=== PATIENT | male | born 1990 | race African-American/Black ===

== ENCOUNTER 2025-01-07 14:29 | Inpatient (IN) | payer MEDICARE, MEDICAID ==
[~2025-01-07] VITALS: Ht 182.9 cm; Wt 54.5 kg
--- NOTE | 2025-01-07 14:56 | ED.PDOC ---
History of present illness HPI Comments 34-year-old male brought by paramedics from [facility] because of generalized weakness nausea frequent urination for the past few days. He was at [facility] recently for four days with a diagnosis of hyperglycemia. Patient was sent home with insulin. Patient has not taken his medications since he was discharged few days ago. He does not answer questions appropriately. Blood sugar was very high on arrival. Blood pressure within normal limits. His heart rate was in the 120s when paramedics arrived at the facility. His heart rate was high 90s on arrival to the ER. Denies shortness a breath. Denies any other symptoms. Time Seen by MD: 14:54 Primary Care Provider: DENIES History of present illness: Nurses Notes, Python Consultant Notes, Medications, Allergies Allergies: Coded Allergies: NO KNOWN ALLERGIES (Unverified , 03/20/12) Information Source: Patient, Emergency Med Personnel Mode of Arrival: EMS Timing: Hours Duration: Since onset Prehospital treatment: 12 Lead EKG, Accucheck Blachly: None Symptoms: Confusion History of: Diabetes Associated signs and symptoms: Nausea, Vomiting Past Medical History PAST MEDICAL HISTORY: DM, Denies Surgical History: Denies all surgeries Family History Family History: Unknown Social History Smoker: Cigarettes Alcohol: Denies ETOH Use Drugs: Denies Drug Use Lives In: Assisted Care Constitutional: reports: weakness; denies: chills, diaphoresis, fatigue, fever, malaise, sweats, others EENTM: denies: blurred vision, double vision, ear bleeding, ear discharge, ear drainage, ear pain, ear ringing, eye pain, eye redness, hearing loss, mouth pain, mouth swelling, nasal discharge, nose bleeding, nose congestion, nose p ain, photophobia, tearing, throat pain, throat swelling, voice changes, others Respiratory: denies: cough, hemoptysis, orthopnea, SOB at rest, shortness of breath, SOB with excertion, stridor, wheezing, others Cardiovascular: denies: chest pain, dizzy spells, diaphoresis, Dyspnea on exertion, edema, irregular heart beat, left arm pain, lightheadedness, palpitations, PND, syncope, others Gastrointestinal: reports: nausea, vomiting; denies: abdomen distended, abdominal pain, blood streaked bowels, constipated, diarrhea, dysphagia, difficulty swallowing, hematemesis, melena, poor appetite, poor fluid intake, rectal bleeding, rectal pain, others Genitourinary: denies: burning, dysuria, flank pain, frequency, hematuria, incontinence, penile discharge, penile sore, pain, testicle pain, testicle swelling, urgency, others Neurological: denies: dizziness, fainting, headache, left sided numbness, left sided weakness, numbness, paresthesia, pre-existing deficit, right sided numbness, right sided weakness, seizure, speech problems, tingling, tremors, weakness, others Musculoskeletal: denies: back pain, gout, joint pain, joint swelling, muscle pain, muscle stiffness, neck pain, others Integumetry: denies: bruises, change in color, change in hair/nails, dryness, laceration, lesions, lumps, rash, wounds, others Allergic/Immunocompromised: denies: Difficulty Healing, Frequent Infections, Hives, Itching, others Hematologic/Lymphatic: denies: anemia, blood clots, easy bleeding, easy bruising, swollen glands, others Endocrine: denies: excessive hunger, excessive sweating, excessive thirst, excessive urination, flushing, intolerance to cold, intolerance to heat, unexplained weight gain, unexplained weight loss, others Psychiatric: denies: anxiety, bipolar disorder, depression, hopeless, panic disorder, schizophrenia, sleepless, suicidal, others All Other Systems: Reviewed and Negative Physical Exam General Appearance: Moderate Distress, Thin HEENT: Normal ENT Inspection, Pharynx Normal, TMs Normal Neck: Full Range of Motion, Non-Tender, Normal, Normal Inspection Respiratory: Chest Non-Tender, Lungs Clear, No Accessory Muscle Use, No Res piratory Distress, Normal Breath Sounds Cardiovascular: No Edema, No JVD, No Murmur, No Gallop, Normal Peripheral Pulses, Regular Rate/Rhythm Breast Exam: Deferred Gastrointestinal: No Organomegaly, Non Tender, No Pulsatile Mass, Normal Bowel Sounds, Soft Genitalia: Deferred Pelvic: Deferred Rectal: Deferred Extremities: No calf tenderness, Normal capillary refill Musculoskeletal : Apperance: Normal Neurologic: Alert Cerebellar Function: NOT DONE Reflexes: NOT DONE Skin: Normal Color Peripheral Pulses: 3+ Radial (R), 3+ Radial (L) Lymphatic: No Adenopathy Was a procedure done? Was a procedure done?: No Differential Diagnosis (DM) Differential Diagnosis: Dehydration, DKA, Hyperglycemia X-Ray, Labs, Meds, VS Vital Signs Date Time Temp Pulse Resp B/P (MAP) Pulse Ox O2 Delivery O2 Flow Rate FiO2 01/07/25 14:59 98.3 87 16 123/89 (100) 100 Lab Test 01/07/25 15:12 01/07/25 15:09 01/07/25 14:57 01/07/25 14:52 Range/Units Blood Gas Specimen Type Arterial Blood Gas Sample Site Right radial Blood Gas Patient Temperature 37.0 Arterial Blood Date Drawn [id number] Arterial Blood pH 7.289 L 7.350-7.450 Arterial Blood Partial Pressure CO2 39.7 35.0-48.0 mmHg Arterial Blood Partial Pressure O2 90.9 83.0-108.0 mmHg Arterial Blood HCO3 18.6 L 21.0-28.0 mmol/L Arterial Blood Oxygen Saturation 96.1 94.0-98.0 % Arterial Blood Base Excess -7.4 L -2.0-3.0 mmol/L Arterial Blood Oxyhemoglobin 94.6 94.0-98.0 % Arterial Blood Carboxyhemoglobin 1.2 0.5-1.5 % Arterial Blood Methemoglobin 0.4 0.0-1.5 % Fly Test Yes Blood Gas Total Hemoglobin 13.80 13.5-17.5 g/dL Blood Gas Modality Room air FiO2 % 21.0 White Blood Count 8.0 4.4-10.8 10^3/uL Red Blood Count 4.69 4.5-5.90 10^6/uL Hemoglobin 14.1 13.5-17.5 g/dL Hematocrit 44.5 41.0-53.0 % Mean Corpuscular Volume 94.9 80.0-100.0 fL Mean Corpuscular Hemoglobin 30.0 28.0-32.0 pg Mean Corpuscular Hemoglobin Concent 31.7 L 32.0-36.0 g/dL Red Cell Distribution Width 16.6 H 11.8-14.3 % Platelet Count 422 140-450 10^3/uL Mean Platelet Volume 8.9 6.9-10.8 fL Neutrophils (%) (Auto) 80.0 37.0-80.0 % Lymphocytes (%) (Auto) 13.5 10.0-50.0 % Monocytes (%) (Auto) 5.4 0.0-12.0 % Eosinophils (%) (Auto) 0.2 0.0-7.0 % Basophils (%) (Auto) 0.9 0.0-2.0 % Neutrophils # (Auto) 6.4 1.6-8.6 10 ^3/uL Lymphocytes # (Auto) 1.1 0.4-5.4 10 ^3/uL Monocytes # (Auto) 0.4 0-1.3 10 ^3/uL Eosinophils # (Auto) 0 0-0.8 10 ^3/uL Basophils # (Auto) 0.1 0-0.2 10 ^3/uL Nucleated Red Blood Cells 0.0 % Sodium Level 135 L 136-145 mmol/L Potassium Level 6.6 *H 3.5-5.1 mmol/L Chloride Level 94 L 98-107 mmol/L Carbon Dioxide Level 19 L 20-31 mmol/L Anion Gap 22 H 5-15 Blood Urea Nitrogen 32 H 9-23 mg/dL Creatinine 1.86 H 0.700-1.30 mg/dL Glomerular Filtration Rate Calc 48 >90 mL/min BUN/Creatinine Ratio 17.2 10.0-20.0 Serum Glucose 915 *H 74-106 mg/dL Calcium Level 12.2 H 8.7-10.4 mg/dL Beta-Hydroxybutyric Acid > 4.500 H < 0.4 mmol/L POC Glucose > 600 *H 70-106 mg/dl Urine Color Colorless Yellow Urine Clarity Clear Clear Urine pH 5.0 5.0-9.0 Urine Specific [place] 1.030 1.001-1.035 Urine Protein Negative Negative Urine Ketones 2+ H Negative Urine Blood Negative Negative /uL Urine Nitrite Negative Negative Urine Bilirubin Negative Negative Urine Urobilinogen Normal Negative mg/dL Urine Leukocyte Esterase Negative Negative /uL Urine RBC <1 0 - 3 /hpf Urine Microscopic WBC 0-3 /HPF Urine Squamous Epithelial Cells None seen <5 /hpf Urine Bacteria None seen None Seen /hpf Urine Glucose 4+ H Normal mg/dL Current Medications Medications (Trade) Dose Ordered Sig/Charisse Route Start Time Stop Time Status Last Admin Sodium Chloride 1,000 ml @ 1,000 mls/hr Q1H ONCE IV 01/07/25 15:00 01/07/25 15:59 DC 01/07/25 16:37 Sodium Chloride 1,000 ml @ 150 mls/hr Q6H40M ONCE IV 01/07/25 15:00 01/07/25 21:39 01/07/25 17:16 Sodium Chloride 1,000 ml @ 1,000 mls/hr Q1H ONCE IV 01/07/25 15:00 01/07/25 15:59 DC 01/07/25 17:16 Insulin Glargine (Lantus) 15 units ONCE ONCE SC 01/07/25 15:00 01/07/25 15:01 DC 01/07/25 15:00 Patient week. Blood sugar elevated. Not appropriately answering questions. Saturation pristine on room air. Heart rate within normal limits. Establish intravenous access. Was given fluids. Was given insulin. Possible DKA. Explained to the patient. Continue cardiac monitoring. Time of 1ST Reevaluation: 15:24 Reevaluation 1ST: Unchanged Patient Education/Counseling: Diagnosis, Treatment Family Education/Counseling: No Family Present Departure 1 Departure Time of Disposition: 15:17 Impression: Primary Impression: DKA (diabetic ketoacidosis) Qualified Codes: E13.10 - Other specified diabetes mellitus with ketoacidosis without coma Additional Impressions: Uncontrolled diabetes mellitus Qualified Codes: E13.65 - Other specified diabetes mellitus with hyperglycemia Hyperkalemia Disposition: ADMITTED INPATIENT Admit to: Med Surg Condition: Guarded Critical Care Note Critical Care Time?: Yes (45 min-critical care time only) Stability Stability form required: No Heart Score Heart Score: Heart Score Response (Comments) Value History N/A 0 EKG N/A 0 Age N/A 0 Risk Factors N/A 0 Troponin N/A 0 Total 0 I personally scribed for STEVE PARMAR MD ([email or web address]) on 01/07/25 at 14:56. Electronically submitted by Racheal Canales ([email or web address]). I personally scribed for STEVE PARMAR MD ([email or web address]) on 01/07/25 at 15:33. Electronically submitted by Racheal Canales ([email or web address]). STEVE PARMAR MD Jan 07, 2025 14:56
[2025-01-07] MEDS: SODIUM CHLORIDE 0.9% 1,000 ML IV ONE ×5 (15:00→17:59)
[2025-01-07] MEDS ORDERED: DEXTROSE (50%) 50ML SYRG IV PRN ×2 (15:00→17:45)
[2025-01-07] MEDS: ACCU-CHEK COMFORT CURVE STRIP VI SCH ×2 (15:00→18:24)
[2025-01-07] MEDS: INSULIN LANTUS (GLARGINE) 1 /0.01ml (100units/ml) SC ONE ×2 (15:00→17:59)
[2025-01-07 15:13] LABS: Urine Bacteria None Seen /hpf (None Seen)
[2025-01-07 15:16] LABS: Base Excess -7.4 mmol/L (-2.0-3.0)
[2025-01-07 15:22] LABS: Urine Blood Negative /uL (Negative); Urine Clarity Clear (Clear); Urine Color Colorless (Yellow); Urine Protein, UAD Negative (Negative); Urine Squamous Epithelial Cell None Seen /hpf (<5); Urine Urobilinogen Normal (Negative)
[2025-01-07 15:27] LABS: Basophils # (auto) 0.1 10 ^3/uL (0-0.2); Basophils % (auto) 0.9 % (0.0-2.0); Eosinophils # (auto) 0 10 ^3/uL (0-0.8); Eosinophils % (auto) 0.2 % (0.0-7.0); Hematocrit 44.5 % (41.0-53.0); Hemoglobin 14.1 g/dL (13.5-17.5); Lymphocytes # (auto) 1.1 10 ^3/uL (0.4-5.4); Lymphocytes % (auto) 13.5 % (10.0-50.0); Mean Corpuscular Hgb Conc. 31.7 g/dL (32.0-36.0); Mean Corpuscular Volume 94.9 fL (80.0-100.0); Monocytes # (auto) 0.4 10 ^3/uL (0-1.3); Monocytes % (auto) 5.4 % (0.0-12.0); Neutrophils # (auto) 6.4 10 ^3/uL (1.6-8.6); Platelet Count (auto) 422 10^3/uL (140-450); Red Blood Cells 4.69 10^6/uL (4.5-5.90); Red Cell Distribution Width 16.6 % (11.8-14.3)
[2025-01-07 15:37] LABS: Anion Gap 22 (5-15)
[2025-01-07 15:43] LABS: BUN/Creatinine Ratio 17.2 (10.0-20.0)
[2025-01-07 16:01] LABS: Blood Urea Nitrogen 32 mg/dL (9-23); Calcium 12.2 mg/dL (8.7-10.4); Carbon Dioxide 19 mmol/L (20-31); Chloride 94 mmol/L (98-107); Sodium 135 mmol/L (136-145)
[2025-01-07 16:03] LABS: Glucose 915 mg/dL (74-106); Potassium 6.6 mmol/L (3.5-5.1)
[2025-01-07] MEDS: SODIUM BICARB 8.4% 50Meq/50ml SYR Vial IV ONE (17:45)
[2025-01-07] MEDS: INSULIN DRIP 100 UNIT/100ML 100 ML IV SCH ×2 (17:45)
[2025-01-07] MEDS ORDERED: NITROGLYCERIN 0.4 MG SL TAB SL PRN (17:45)
[2025-01-07] MEDS: SODIUM ZIRCONIUM CYCL 10 GM PAK PO ONE (17:50)
[2025-01-07] MEDS: SODIUM BICARB 8.4% 50Meq/50ml SYR INJ IV ONE (17:50)
[2025-01-07] MEDS: CALCIUM GLUC 1,000mg/50ml-NS 50 ML IV ONE (17:50)
--- NOTE | 2025-01-07 17:54 | DVHHP2 ---
History of Present Illness Reason for Visit: Altered mental status, hyperkalemia History of Present Illness Patient was a 34-year-old male presenting to the emergency room with altered mental status and hyperglycemia. Apparently, the patient was recently discharged from [facility] with an insulin regimen. At the time of assessment, patient continues to have altered mental status and only responds by knowing his name. Patient was blood sugar was found to be significantly elevated at 915. At this time there is no other history available for this sarah ent. Endocrine: Diabetes Past Surgical History: None Family History: None Review of Systems Review of Systems Patient has altered mental status. Allergies: Coded Allergies: NO KNOWN ALLERGIES (Unverified , 03/20/12) Medications Current Medications Medications Dose Ordered Sig/Charisse Route Start Time Stop Time Status Last Admin Dose Admin Insulin Human (Reg)/Sodium Chloride 100 ml @ 0.5 mls/hr Q24H IV 01/07/25 15:00 Diagnostic Test (Pha) 1 strip Q90MIN 01/07/25 15:00 Dextrose 50 ml PRN PRN IV 01/07/25 15:00 Insulin Glargine 15 units DAILY SC 01/08/25 10:00 Nitroglycerin 0.4 mg Q5MINP PRN SL 01/07/25 17:45 UNV Morphine Sulfate 2 mg Q30M PRN IV 01/07/25 17:45 UNV Sodium Chloride 1,000 ml @ 150 mls/hr Q6H40M IV 01/07/25 23:45 UNV Insulin Human (Reg)/Sodium Chloride 100 ml @ 0.5 mls/hr Q24H IV 01/07/25 17:45 UNV Dextrose 50 ml UD PRN IV 01/07/25 17:45 UNV Diagnostic Test (Pha) 1 strip Q90MIN 01/07/25 18:00 UNV Insulin Glargine 15 units DAILY SC 01/08/25 10:00 UNV Exam Vital Signs Vital Signs Date Time Temp Pulse Resp B/P (MAP) Pulse Ox O2 Delivery O2 Flow Rate FiO2 01/07/25 14:59 98.3 87 16 123/89 (100) 100 General Appearance: Alert, moderate distress, Other (Disoriented, cachectic) HEENT: Atraumatic, PERRLA Respiratory: Clear to auscultation Cardiovascular: Normal S1, Normal S2 Abdominal: Normal bowel sounds, Soft, No tenderness Skin: No rashes, No breakdown Psych/Mental Status: Other (Altered mental status) Labs/Xrays Labs Test 01/07/25 15:12 01/07/25 15:09 01/07/25 14:57 01/07/25 14:52 Range/Units Blood Gas Specimen Type Arterial Blood Gas Sample Site Right radial Blood Gas Patient Temperature 37.0 Arterial Blood Date Drawn [id number] Arterial Blood pH 7.289 L 7.350-7.450 Arterial Blood Partial Pressure CO2 39.7 35.0-48.0 mmHg Arterial Blood Partial Pressure O2 90.9 83.0-108.0 mmHg Arterial Blood HCO3 18.6 L 21.0-28.0 mmol/L Arterial Blood Oxygen Saturation 96.1 94.0-98.0 % Arterial Blood Base Excess -7.4 L -2.0-3.0 mmol/L Arterial Blood Oxyhemoglobin 94.6 94.0-98.0 % Arterial Blood Carboxyhemoglobin 1.2 0.5-1.5 % Arterial Blood Methemoglobin 0.4 0.0-1.5 % Fly Test Yes Blood Gas Total Hemoglobin 13.80 13.5-17.5 g/dL Blood Gas Modality Room air FiO2 % 21.0 White Blood Count 8.0 4.4-10.8 10^3/uL Red Blood Count 4.69 4.5-5.90 10^6/uL Hemoglobin 14.1 13.5-17.5 g/dL Hematocrit 44.5 41.0-53.0 % Mean Corpuscular Volume 94.9 80.0-100.0 fL Mean Corpuscular Hemoglobin 30.0 28.0-32.0 pg Mean Corpuscular Hemoglobin Concent 31.7 L 32.0-36.0 g/dL Red Cell Distribution Width 16.6 H 11.8-14.3 % Platelet Count 422 140-450 10^3/uL Mean Platelet Volume 8.9 6.9-10.8 fL Neutrophils (%) (Auto) 80.0 37.0-80.0 % Lymphocytes (%) (Auto) 13.5 10.0-50.0 % Monocytes (%) (Auto) 5.4 0.0-12.0 % Eosinophils (%) (Auto) 0.2 0.0-7.0 % Basophils (%) (Auto) 0.9 0.0-2.0 % Neutrophils # (Auto) 6.4 1.6-8.6 10 ^3/uL Lymphocytes # (Auto) 1.1 0.4-5.4 10 ^3/uL Monocytes # (Auto) 0.4 0-1.3 10 ^3/uL Eosinophils # (Auto) 0 0-0.8 10 ^3/uL Basophils # (Auto) 0.1 0-0.2 10 ^3/uL Nucleated Red Blood Cells 0.0 % Sodium Level 135 L 136-145 mmol/L Potassium Level 6.6 *H 3.5-5.1 mmol/L Chloride Level 94 L 98-107 mmol/L Carbon Dioxide Level 19 L 20-31 mmol/L Anion Gap 22 H 5-15 Blood Urea Nitrogen 32 H 9-23 mg/dL Creatinine 1.86 H 0.700-1.30 mg/dL Glomerular Filtration Rate Calc 48 >90 mL/min BUN/Creatinine Ratio 17.2 10.0-20.0 Serum Glucose 915 *H 74-106 mg/dL Calcium Level 12.2 H 8.7-10.4 mg/dL Beta-Hydroxybutyric Acid > 4.500 H < 0.4 mmol/L POC Glucose > 600 *H 70-106 mg/dl Urine Color Colorless Yellow Urine Clarity Clear Clear Urine pH 5.0 5.0-9.0 Urine Specific [place] 1.030 1.001-1.035 Urine Protein Negative Negative Urine Ketones 2+ H Negative Urine Blood Negative Negative /uL Urine Nitrite Negative Negative Urine Bilirubin Negative Negative Urine Urobilinogen Normal Negative mg/dL Urine Leukocyte Esterase Negative Negative /uL Urine RBC <1 0 - 3 /hpf Urine Microscopic WBC 0-3 /HPF Urine Squamous Epithelial Cells None seen <5 /hpf Urine Bacteria None seen None Seen /hpf Urine Glucose 4+ H Normal mg/dL Assessment/Plan Assessment/Plan Impression: -diabetic ketoacidosis -hyperkalemia -metabolic encephalopathy -cachexia -diabetes mellitus type 1 -acute kidney injury Plan: -admit to ICU -regular insulin sliding scale, bolus 6 units IV insulin now -continue aggressive IV hydration with another 1 L normal saline bolus followed by 150 mL/hr -given peaked T-waves, one amp of sodium bicarbonate -serial BMP -UDS -electrolyte replete as needed Critical care time spent with patient discussing and formulating plan of care: 40 minutes. This does not include time spent performing procedures. This medical document was created using an electronic medical record system with [employer] dictation system. Although this document has been carefully reviewed, there may still be some phonetic and typographical errors. These areas are purely typographical due to imperfections of the software programs, and do not reflect any compromise in the patient's medical care. Plan discussed with: Patient, Other (RN) My Orders Orders - VANESSA SUAREZ MAITRE D' Procedure Category Date Status Time Admit ADMIT 01/07/25 Transmitted 17:31 Nitroglycerin PHA 01/07/25 Logged Sublingual (Ntrostat 17:45 Morphine Sulfate PHA 01/07/25 Logged Injection 17:45 Stat Ekg For Chest MELINA 01/07/25 In Process Pain 17:31 Notify Of Changes MELINA 01/07/25 In Process From Base 17:31 Making Department Preparer For MELINA 01/07/25 In Process 24 Hours 17:31 Emergency Dysrhythmia MELINA 01/07/25 In Process Protocol 17:31 Rhythm Strips Once MELINA 01/07/25 In Process Every Shift 17:31 Oxygen By Nasal RT 01/07/25 Transmitted Cannula 17:31 Hemoglobin A1c LAB 01/07/25 In Process 17:31 Npo (Nothing By DIET 01/07/25 Transmitted Mouth) Diet Dinner Insulin R (Human) PHA 01/07/25 Logged (Insulin R) 17:45 Sodium Chloride 0.9% PHA 01/07/25 Logged 23:45 Insulin Drip 100 PHA 01/07/25 Logged Unit/100ml (Myxredlin 17:45 Dextrose 50% Syringe PHA 01/07/25 Logged 17:45 Glucose Blood PHA 01/07/25 Logged (Accu-Chek Comfort 18:00 Phosphorus LAB 01/07/25 In Process 17:31 Magnesium LAB 01/07/25 In Process 17:31 Osmolality, Serum LAB 01/07/25 In Process 17:31 Basic Metabolic Panel LAB 01/07/25 Logged 17:31 Basic Metabolic Panel LAB 01/07/25 Logged 23:31 Basic Metabolic Panel LAB 01/08/25 Verified 05:31 Basic Metabolic Panel LAB 01/08/25 Verified 11:31 Urinalysis LAB 01/07/25 Logged 17:31 Neurological MELINA 2/6/25 In Process Assessment 17:31 Insulin Lantus PHA 01/07/25 Logged (Glargine) (Lantus) 17:45 Insulin Lantus PHA 01/08/25 Logged (Glargine) (Lantus) 10:00 Sodium Chloride 0.9% PHA 01/07/25 Logged 17:45 Sodium Bicarb PHA 01/07/25 Logged 50meq/50ml Vial 17:45 Drug Screen LAB 01/07/25 Transmitted 17:45 Date of Service: Jan 07, 2025 Billing Provider: VANESSA SUAREZ NP Common Visit Codes: 95317-[id number] CARE 30-74 MIN VANESSA SUAREZ NP Jan 07, 2025 17:54
[2025-01-07] MEDS: InsuLIN REG 1unit/0.01ml Soln (100units/ml) IV ONE (17:59)
[2025-01-07 18:00] LABS: Magnesium 2.4 mg/dL (1.6-2.6)
[2025-01-07 18:18] VITALS: PULSE 63; RESP 18; O2SAT 98
[2025-01-07 18:27] LABS: Phosphorus 9.1 mg/dL (2.4-5.1)
[2025-01-07] MEDS: ALBUTEROL SULF 2.5 MG/0.5ML(0.5%) NEB SOLN NEB ONE (18:48)
[2025-01-07 19:00] LABS: Chloride 99 mmol/L (98-107); Potassium 4.8 mmol/L (3.5-5.1); Sodium 140 mmol/L (136-145)
[2025-01-07 19:01] LABS: Anion Gap 18 (5-15); Carbon Dioxide 23 mmol/L (20-31)
[2025-01-07 19:30] VITALS: PULSE 62; RESP 18; O2SAT 99
[2025-01-07 19:36] LABS: Blood Urea Nitrogen 29 mg/dL (9-23); Calcium 10.8 mg/dL (8.7-10.4)
[2025-01-07 19:54] LABS: Glucose 754 mg/dL (74-106)
[2025-01-07 20:45] LABS: Amphetamine Screen, Urine Neg (NEGATIVE); Barbiturate Scree,Urine Neg (NEGATIVE); Benzodiazephine Screen, Urine Neg (NEGATIVE); Cannabinoid Screen, Urine Neg (NEGATIVE); Cocaine Screen, Urine Neg (NEGATIVE); Opiate Scree,Urine Neg (NEGATIVE); Phencyclidine Screen, Urine Neg (NEGATIVE)
[2025-01-07] MEDS: SODIUM CHLORIDE 0.9% 1,000 ML IV SCH (22:38)
[2025-01-07] MEDS: MORPHINE SULFATE INJ 2 MG/ml SYRG IV PRN (23:09)
[2025-01-07 23:48] LABS: Anion Gap 9 (5-15); Carbon Dioxide 30 mmol/L (20-31); Potassium 3.6 mmol/L (3.5-5.1)
[2025-01-07 23:54] LABS: BUN/Creatinine Ratio 17.6 (10.0-20.0); Blood Urea Nitrogen 22 mg/dL (9-23); Calcium 10.6 mg/dL (8.7-10.4); Chloride 107 mmol/L (98-107); Glucose 204 mg/dL (74-106); Sodium 146 mmol/L (136-145)
[2025-01-08] VITALS (15 sets, daily range): BP systolic 86–101; BP diastolic 51–62; PULSE 48–68; RESP 12–16; TEMP 97.1–97.9; O2SAT 98–100
[2025-01-08] MEDS ORDERED: DEXTROSE (50%) 50ML SYRG IV PRN (01:45)
[2025-01-08] MEDS: SODIUM BICARB 8.4% 50Meq/50ml SYR Vial IV ONE (02:45)
[2025-01-08] MEDS: D5W/SOD CHLO 0.9% 1,000 ML IV SCH (02:45)
[2025-01-08] MEDS: InsuLIN REG 1unit/0.01ml Soln (100units/ml) SC SCH (04:00)
[2025-01-08] MEDS: ACCU-CHEK COMFORT CURVE STRIP VI SCH (04:10)
[2025-01-08 07:18] LABS: Anion Gap 8 (5-15); Basophils # (auto) 0.1 10 ^3/uL (0-0.2); Basophils % (auto) 1.3 % (0.0-2.0); Chloride 104 mmol/L (98-107); Eosinophils # (auto) 0.1 10 ^3/uL (0-0.8); Hematocrit 31.4 % (41.0-53.0); Hemoglobin 10.5 g/dL (13.5-17.5); Lymphocytes # (auto) 2.2 10 ^3/uL (0.4-5.4); Lymphocytes % (auto) 32.5 % (10.0-50.0); Mean Corpuscular Hemoglobin 29.9 pg (28.0-32.0); Mean Corpuscular Hgb Conc. 33.5 g/dL (32.0-36.0); Mean Corpuscular Volume 89.2 fL (80.0-100.0); Monocytes # (auto) 0.7 10 ^3/uL (0-1.3); Monocytes % (auto) 10.7 % (0.0-12.0); Neutrophils # (auto) 3.6 10 ^3/uL (1.6-8.6); Neutrophils % (auto) 53.5 % (37.0-80.0); Nucleated Red Blood Cells % 0.1 %; Platelet Count (auto) 340 10^3/uL (140-450); Red Blood Cells 3.52 10^6/uL (4.5-5.90); Red Cell Distribution Width 15.2 % (11.8-14.3); White Blood Cell 6.8 10^3/uL (4.4-10.8)
[2025-01-08 07:19] LABS: Calcium 9.6 mg/dL (8.7-10.4)
[2025-01-08 07:21] LABS: Carbon Dioxide 33 mmol/L (20-31); Potassium 3.5 mmol/L (3.5-5.1); Sodium 145 mmol/L (136-145)
[2025-01-08 07:24] LABS: BUN/Creatinine Ratio 15.1 (10.0-20.0); Blood Urea Nitrogen 19 mg/dL (9-23)
[2025-01-08 07:25] LABS: Glucose 141 mg/dL (74-106)
--- NOTE | 2025-01-08 08:27 | ECG ---
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
[2025-01-08] MEDS: POTASSIUM CHL 20MEQ/100ML 100 ML IV ONE (09:35)
[2025-01-08] MEDS ORDERED: INSULIN LANTUS (GLARGINE) 1 /0.01ml (100units/ml) SC SCH ×2 (10:00)
--- NOTE | 2025-01-08 11:18 | DVHSR ---
APPROVED REPORT EXAM: Two-dimensional and M-mode echocardiogram with Doppler and color Doppler. Blood Pressure: 90/62 mmHg INDICATION bradycardia RISK FACTORS Height: 6'0, Weight: 130 DIMENSIONS LVDd4.7 (3.8-5.7cm)LA (2D)3.6 (1.9-4.0cm)Aortic Root3.1 (2.0-3.7cm) LVDs2.9 (2.5-4.0cm)LA (MM) (1.9-4.0cm)Aortic Cusp Exc2.0 (1.5-2.0cm) EF (%) 65.0 (55-70%)Rt. Atrium4.4 (1.9-4.0cm)Asc. Aorta cm IVSd0.6 (0.7-1.1cm)RV (D)4.7 (1.8-2.4cm) PWd0.8 (0.7-1.1cm) Mitral Valve MitralMitral Stenosis E wave0.88m/sMV Mean GR.mmHg A wave0.41m/sMV Peak GR.mmHg E/A ratio2.12D MVAcm2 DECEL [id number] 1/2 Tim[place] Aortic Valve Aortic ValveAortic Stenosis V11.02m/Quan Mean GR.2mmHg V21.04m/Quan Peak GR.4mmHg LVOT Diameter2.2 (1.8-2.4cm)Doppler AVA3.73cm2 Pulmonic Valve V20.67m/s Tricuspid Valve TR Velocity1.83m/s [id number] Conclusion Technically good study sinus rhythm. Right atrial and right ventricular enlargement of mild degree. Valves are normal. EF of 60% with normal RV function. Dopplers unremarkable. No pericardial effusion masses or vegetations.
[2025-01-08] MEDS: SODIUM CHLORIDE 0.9% 1,000 ML IV SCH (12:41)
--- NOTE | 2025-01-08 19:05 | DVHINCON2 ---
Date of service: Jan 08, 2025 Referring Physician valencia Reason for Consultation [email or web address] History of Present Illness 34 years old male with past medical history of diabetes type 1, Chronic kidney disease of altered mental status found to have hyperglycemia, Acute kidney injury, hyperkalemia and DKA patient appropriately treated with IV fluids and insulin patient appears lethargic seen and examined in emergency room Past Medical History As per HPI Past Surgical History As documented in HPI Allergies: Coded Allergies: NO KNOWN ALLERGIES (Unverified , 03/20/12) Current Medications Current Medications Medications (Trade) Dose Ordered Sig/Charisse Route PRN Reason Start Time Stop Time Status Last Admin Insulin Glargine (Lantus) 15 units DAILY SC 01/08/25 10:00 01/07/25 18:15 DC Sodium Chloride 1,000 ml @ 150 mls/hr Q6H40M IV 01/07/25 23:45 01/08/25 01:46 DC 01/07/25 22:38 Insulin Glargine (Lantus) 15 units DAILY SC 01/08/25 10:00 01/08/25 01:46 DC Diagnostic Test (Pha) (Accu-Chek Comfort Curve T) 1 strip IQ4HR 01/08/25 04:00 01/08/25 16:40 Insulin Human Regular (InsuLIN R) IQ4HR SC 01/08/25 04:00 01/08/25 16:45 Dextrose 50 ml UD PRN IV Blood Sugar LESS THAN 60 01/08/25 01:45 Dextrose/Sodium Chloride 1,000 ml @ 125 mls/hr Q8H IV 01/08/25 03:00 01/08/25 08:31 DC 01/08/25 02:45 Insulin Glargine (Lantus) 10 units DAILY@1000 SC 01/09/25 10:00 Sodium Chloride 1,000 ml @ 100 mls/hr Q10H IV 01/08/25 10:45 01/08/25 12:41 Family History: Patient reports no known family medical history. Review of Systems Unable to obtain H&P Exam Vital Signs/I&O Vital Sign Date Time Temp Pulse Resp B/P (MAP) Pulse Ox O2 Delivery O2 Flow Rate FiO2 01/08/25 18:00 61 16 101/58 (72) 100 01/08/25 18:00 Room Air* 0 21 01/08/25 16:00 97.1 97.1 Intake and Output 01/07/25 01/08/25 19:00 07:00 Intake Total 2200 ml 1196.25 ml Output Total 825 ml Balance 2200 ml 371.25 ml Intake Oral 0 ml IV Total 2200 ml 1196.25 ml Output Urine Total 825 ml Physical Exam General-not in any distress HEENT-normocephalic, no icterus, no pallor, neck supple Respiratory-fair air entry bilateral, no rhonchi, no wheeze [id number] heard, no murmurs appreciated Abdominal-soft, nontender, nondistended Musculoskeletal-no pedal edema, no calf tenderness Labs/Diagnostic Data Labs/Diagnostic Data Laboratory Tests Test 01/08/25 16:36 01/08/25 12:21 01/08/25 08:41 01/08/25 06:05 Range/Units POC Glucose 252 H 303 H 148 H 70-106 mg/dl White Blood Count 6.8 4.4-10.8 10^3/uL Red Blood Count 3.52 L 4.5-5.90 10^6/uL Hemoglobin 10.5 #L 13.5-17.5 g/dL Hematocrit 31.4 #L 41.0-53.0 % Mean Corpuscular Volume 89.2 # 80.0-100.0 fL Mean Corpuscular Hemoglobin 29.9 28.0-32.0 pg Mean Corpuscular Hemoglobin Concent 33.5 32.0-36.0 g/dL Red Cell Distribution Width 15.2 H 11.8-14.3 % Platelet Count 340 140-450 10^3/uL Mean Platelet Volume 8.5 6.9-10.8 fL Neutrophils (%) (Auto) 53.5 37.0-80.0 % Lymphocytes (%) (Auto) 32.5 10.0-50.0 % Monocytes (%) (Auto) 10.7 0.0-12.0 % Eosinophils (%) (Auto) 2.0 0.0-7.0 % Basophils (%) (Auto) 1.3 0.0-2.0 % Neutrophils # (Auto) 3.6 1.6-8.6 10 ^3/uL Lymphocytes # (Auto) 2.2 0.4-5.4 10 ^3/uL Monocytes # (Auto) 0.7 0-1.3 10 ^3/uL Eosinophils # (Auto) 0.1 0-0.8 10 ^3/uL Basophils # (Auto) 0.1 0-0.2 10 ^3/uL Nucleated Red Blood Cells 0.1 % Sodium Level 145 136-145 mmol/L Potassium Level 3.5 3.5-5.1 mmol/L Chloride Level 104 98-107 mmol/L Carbon Dioxide Level 33 H 20-31 mmol/L Anion Gap 8 5-15 Blood Urea Nitrogen 19 9-23 mg/dL Creatinine 1.26 0.700-1.30 mg/dL Glomerular Filtration Rate Calc 76 >90 mL/min BUN/Creatinine Ratio 15.1 10.0-20.0 Serum Glucose 141 H 74-106 mg/dL Calcium Level 9.6 8.7-10.4 mg/dL Magnesium Level 1.8 1.6-2.6 mg/dL Troponin I High Sensitivity < 3 L </=54 ng/L Test 01/08/25 04:03 01/08/25 01:28 01/07/25 23:54 01/07/25 23:21 Range/Units POC Glucose 110 H 108 H 168 H 70-106 mg/dl Sodium Level 146 #H 136-145 mmol/L Potassium Level 3.6 3.5-5.1 mmol/L Chloride Level 107 98-107 mmol/L Carbon Dioxide Level 30 20-31 mmol/L Anion Gap 9 5-15 Blood Urea Nitrogen 22 9-23 mg/dL Creatinine 1.25 0.700-1.30 mg/dL Glomerular Filtration Rate Calc 77 >90 mL/min BUN/Creatinine Ratio 17.6 10.0-20.0 Serum Glucose 204 #H 74-106 mg/dL Calcium Level 10.6 H 8.7-10.4 mg/dL Test 01/07/25 22:34 01/07/25 21:03 01/07/25 19:10 01/07/25 18:38 Range/Units POC Glucose 232 H 396 H > 600 *H 70-106 mg/dl Sodium Level 140 # 136-145 mmol/L Potassium Level 4.8 3.5-5.1 mmol/L Chloride Level 99 98-107 mmol/L Carbon Dioxide Level 23 20-31 mmol/L Anion Gap 18 H 5-15 Blood Urea Nitrogen 29 H 9-23 mg/dL Creatinine 1.53 H 0.700-1.30 mg/dL Glomerular Filtration Rate Calc 60 >90 mL/min BUN/Creatinine Ratio 19.0 10.0-20.0 Serum Glucose 754 #*H 74-106 mg/dL Calcium Level 10.8 H 8.7-10.4 mg/dL Test 01/07/25 15:12 01/07/25 15:09 01/07/25 14:57 01/07/25 14:52 Range/Units Blood Gas Specimen Type Arterial Blood Gas Sample Site Right radial Blood Gas Patient Temperature 37.0 Arterial Blood Date Drawn [id number] Arterial Blood pH 7.289 L 7.350-7.450 Arterial Blood Partial Pressure CO2 39.7 35.0-48.0 mmHg Arterial Blood Partial Pressure O2 90.9 83.0-108.0 mmHg Arterial Blood HCO3 18.6 L 21.0-28.0 mmol/L Arterial Blood Oxygen Saturation 96.1 94.0-98.0 % Arterial Blood Base Excess -7.4 L -2.0-3.0 mmol/L Arterial Blood Oxyhemoglobin 94.6 94.0-98.0 % Arterial Blood Carboxyhemoglobin 1.2 0.5-1.5 % Arterial Blood Methemoglobin 0.4 0.0-1.5 % Fly Test Yes Blood Gas Total Hemoglobin 13.80 13.5-17.5 g/dL Blood Gas Modality Room air FiO2 % 21.0 White Blood Count 8.0 4.4-10.8 10^3/uL Red Blood Count 4.69 4.5-5.90 10^6/uL Hemoglobin 14.1 13.5-17.5 g/dL Hematocrit 44.5 41.0-53.0 % Mean Corpuscular Volume 94.9 80.0-100.0 fL Mean Corpuscular Hemoglobin 30.0 28.0-32.0 pg Mean Corpuscular Hemoglobin Concent 31.7 L 32.0-36.0 g/dL Red Cell Distribution Width 16.6 H 11.8-14.3 % Platelet Count 422 140-450 10^3/uL Mean Platelet Volume 8.9 6.9-10.8 fL Neutrophils (%) (Auto) 80.0 37.0-80.0 % Lymphocytes (%) (Auto) 13.5 10.0-50.0 % Monocytes (%) (Auto) 5.4 0.0-12.0 % Eosinophils (%) (Auto) 0.2 0.0-7.0 % Basophils (%) (Auto) 0.9 0.0-2.0 % Neutrophils # (Auto) 6.4 1.6-8.6 10 ^3/uL Lymphocytes # (Auto) 1.1 0.4-5.4 10 ^3/uL Monocytes # (Auto) 0.4 0-1.3 10 ^3/uL Eosinophils # (Auto) 0 0-0.8 10 ^3/uL Basophils # (Auto) 0.1 0-0.2 10 ^3/uL Nucleated Red Blood Cells 0.0 % Sodium Level 135 L 136-145 mmol/L Potassium Level 6.6 *H 3.5-5.1 mmol/L Chloride Level 94 L 98-107 mmol/L Carbon Dioxide Level 19 L 20-31 mmol/L Anion Gap 22 H 5-15 Blood Urea Nitrogen 32 H 9-23 mg/dL Creatinine 1.86 H 0.700-1.30 mg/dL Glomerular Filtration Rate Calc 48 >90 mL/min BUN/Creatinine Ratio 17.2 10.0-20.0 Serum Glucose 915 *H 74-106 mg/dL Hemoglobin A1c > 14.0 H <5.7 % A1C Serum Osmolality 366 H 278-298 mOsm/kg Calcium Level 12.2 H 8.7-10.4 mg/dL Phosphorus Level 9.1 H 2.4-5.1 mg/dL Magnesium Level 2.4 1.6-2.6 mg/dL Beta-Hydroxybutyric Acid > 4.500 H < 0.4 mmol/L POC Glucose > 600 *H 70-106 mg/dl Urine Color Colorless Yellow Urine Clarity Clear Clear Urine pH 5.0 5.0-9.0 Urine Specific [place] 1.030 1.001-1.035 Urine Protein Negative Negative Urine Ketones 2+ H Negative Urine Blood Negative Negative /uL Urine Nitrite Negative Negative Urine Bilirubin Negative Negative Urine Urobilinogen Normal Negative mg/dL Urine Leukocyte Esterase Negative Negative /uL Urine RBC <1 0 - 3 /hpf Urine Microscopic WBC 0-3 /HPF Urine Squamous Epithelial Cells None seen <5 /hpf Urine Bacteria None seen None Seen /hpf Urine Glucose 4+ H Normal mg/dL Urine Opiates Screen Neg NEGATIVE Urine Fentanyl Screen Neg NEGATIVE Urine Barbiturates Screen Neg NEGATIVE Urine Phencyclidine Screen Neg NEGATIVE Urine Amphetamines Screen Neg NEGATIVE Urine Benzodiazepines Screen Neg NEGATIVE Urine Cocaine Screen Neg NEGATIVE Urine Cannabinoids Screen Neg NEGATIVE Assessment Acute kidney injury hemodynamic mediated in the setting of DKA Hyperkalemia Diabetic ketoacidosis Encephalopathy Recommendations Agree with IV fluids continue NS Blood sugar control Electrolytes and renal function improving since admission Low-potassium diet We will follow closely Plan discussed with: Patient KAMILLE KEBEDE MD Jan 08, 2025 19:05
[2025-01-09] VITALS (8 sets, daily range): BP systolic 92–104; BP diastolic 52–71; PULSE 56–80; RESP 15–18; TEMP 97.9–98.2; O2SAT 97–100
[2025-01-09] MEDS: INSULIN LANTUS (GLARGINE) 1 /0.01ml (100units/ml) SC SCH (08:48)
--- NOTE | 2025-01-09 10:00 | DVHPN2 ---
Progress Note Date Seen: Jan 09, 2025 Medical Necessity Reason Pt with a Central, PICC or Fol: No Subjective Patient reports: Other Review of Systems: Deferred Objective vital signs Vital Sign Date Time Temp Pulse Resp B/P (MAP) Pulse Ox O2 Delivery O2 Flow Rate FiO2 01/09/25 09:00 98.0 65 15 97/55 (69) 97 98.0 01/09/25 08:00 Room Air* 0 21 Total Intake and Output 01/08/25 01/08/25 01/09/25 15:00 23:00 07:00 Intake Total 425 ml 2300 ml Output Total 600 ml Balance 425 ml 1700 ml medications Current Medications Medications Dose Ordered Sig/Charisse Route Start Time Stop Time Status Last Admin Dose Admin Nitroglycerin 0.4 mg Q5MINP PRN SL 01/07/25 17:45 Morphine Sulfate 2 mg Q30M PRN IV 01/07/25 17:45 01/07/25 23:09 2 MG Diagnostic Test (Pha) 1 strip IQ4HR 01/08/25 04:00 01/09/25 08:28 1 STRIP Insulin Human Regular IQ4HR SC 01/08/25 04:00 01/09/25 05:56 2 UNITS Dextrose 50 ml UD PRN IV 01/08/25 01:45 Insulin Glargine 10 units DAILY@1000 SC 01/09/25 10:00 01/09/25 08:48 10 UNITS Sodium Chloride 1,000 ml @ 100 mls/hr Q10H IV 01/08/25 10:45 01/09/25 06:06 100 MLS/HR laboratory and microbiology Laboratory Tests 01/08/25 06:05 Test 01/08/25 06:05 Range/Units Serum Glucose 141 H 74-106 mg/dL Problem List/Assessment/Plan Problem List/Assessment/Plan Acute kidney injury hemodynamic mediated in the setting of DKA Hyperkalemia Diabetic ketoacidosis Encephalopathy Recommendations labs pending today Agree with IV fluids continue NS--bp ,low side Blood sugar control Electrolytes and renal function improving since admission Low-potassium diet We will follow closely Plan discussed with: Patient My Orders My Orders Orders - KAMILLE KEBEDE MD Procedure Category Date Status Time Basic Metabolic Panel LAB 01/09/25 Logged 09:11 KAMILLE KEBEDE MD Jan 09, 2025 10:00
--- NOTE | 2025-01-09 11:26 | DVHINCON2 ---
Date Seen: Jan 09, 2025 Referring Physician Cami Reason for Consultation Bradycardia History of Present Illness 34-year-old male with with PMH for intellectual disability, CKD, diabetes, recently admitted to [facility] for DKA presents to the hospital with altered mental status and hyperglycemia. Patient poor historian therefore information gathered mainly from chart review. Apparently patient was discharged from [facility] on insulin regimen, upon evaluation in the ER patient had significant blood glucose elevated at 915. Patient admitted with DKA again, hyperkalemia, JEFF. While on telemetry patient noted to have episodes of bradycardia with heart rate down to the 40s. Cardiology consulted. Admission EKG reviewed and shows sinus bradycardia at 51 beats per minute, nonspecific T-wave abnormality. Past Medical History Diabetes, intellectual disability, CKD Past Surgical History No previous cardiac surgeries noted on review. Family History: Patient reports no known family medical history. Social History Denies alcohol, tobacco, or illicit drug use. Allergies: Coded Allergies: NO KNOWN ALLERGIES (Unverified , 03/20/12) Current Medications Current Medications Medications (Trade) Dose Ordered Sig/Charisse Route PRN Reason Start Time Stop Time Status Last Admin Insulin Glargine (Lantus) 10 units DAILY@1000 SC 01/09/25 10:00 01/09/25 08:48 Review of Systems Unable to assess. Vital Signs Vital Signs Date Time Temp Pulse Resp B/P (MAP) Pulse Ox O2 Delivery O2 Flow Rate FiO2 01/09/25 09:00 98.0 65 15 97/55 (69) 97 98.0 01/09/25 08:00 Room Air* 0 21 Physical Exam General appearance: Patient is well-developed, well-nourished, in no acute distress. HEENT: Exam shows: Normocephalic, atraumatic, PERRLA, EOMI Neck: Supple, no bruits Chest: Equal chest excursion bilaterally. Breath sounds diminished. Heart: Rhythm: Bradycardia; no murmur or gallop Abdomen: Exam shows: Soft, nontender, nondistended Musculoskeletal: No clubbing, no cyanosis, no lower extremity edema Dermatology: Skin warm, moist. Neurological: Exam shows: Alert and oriented x 1-2, normal speech Available prior records, labs, EKG, rhythm strips reviewed and interpreted Labs/Diagnostic Data Labs Test 01/09/25 08:22 2/7/25 06:05 01/07/25 15:12 01/07/25 15:09 Range/Units POC Glucose 93 70-106 mg/dl White Blood Count 6.8 4.4-10.8 10^3/uL Red Blood Count 3.52 L 4.5-5.90 10^6/uL Hemoglobin 10.5 #L 13.5-17.5 g/dL Hematocrit 31.4 #L 41.0-53.0 % Mean Corpuscular Volume 89.2 # 80.0-100.0 fL Mean Corpuscular Hemoglobin 29.9 28.0-32.0 pg Mean Corpuscular Hemoglobin Concent 33.5 32.0-36.0 g/dL Red Cell Distribution Width 15.2 H 11.8-14.3 % Platelet Count 340 140-450 10^3/uL Mean Platelet Volume 8.5 6.9-10.8 fL Neutrophils (%) (Auto) 53.5 37.0-80.0 % Lymphocytes (%) (Auto) 32.5 10.0-50.0 % Monocytes (%) (Auto) 10.7 0.0-12.0 % Eosinophils (%) (Auto) 2.0 0.0-7.0 % Basophils (%) (Auto) 1.3 0.0-2.0 % Neutrophils # (Auto) 3.6 1.6-8.6 10 ^3/uL Lymphocytes # (Auto) 2.2 0.4-5.4 10 ^3/uL Monocytes # (Auto) 0.7 0-1.3 10 ^3/uL Eosinophils # (Auto) 0.1 0-0.8 10 ^3/uL Basophils # (Auto) 0.1 0-0.2 10 ^3/uL Nucleated Red Blood Cells 0.1 % Sodium Level 145 136-145 mmol/L Potassium Level 3.5 3.5-5.1 mmol/L Chloride Level 104 98-107 mmol/L Carbon Dioxide Level 33 H 20-31 mmol/L Anion Gap 8 5-15 Blood Urea Nitrogen 19 9-23 mg/dL Creatinine 1.26 0.700-1.30 mg/dL Glomerular Filtration Rate Calc 76 >90 mL/min BUN/Creatinine Ratio 15.1 10.0-20.0 Serum Glucose 141 H 74-106 mg/dL Calcium Level 9.6 8.7-10.4 mg/dL Magnesium Level 1.8 1.6-2.6 mg/dL Troponin I High Sensitivity < 3 L </=54 ng/L Blood Gas Specimen Type Arterial Blood Gas Sample Site Right radial Blood Gas Patient Temperature 37.0 Arterial Blood Date Drawn [id number] Arterial Blood pH 7.289 L 7.350-7.450 Arterial Blood Partial Pressure CO2 39.7 35.0-48.0 mmHg Arterial Blood Partial Pressure O2 90.9 83.0-108.0 mmHg Arterial Blood HCO3 18.6 L 21.0-28.0 mmol/L Arterial Blood Oxygen Saturation 96.1 94.0-98.0 % Arterial Blood Base Excess -7.4 L -2.0-3.0 mmol/L Arterial Blood Oxyhemoglobin 94.6 94.0-98.0 % Arterial Blood Carboxyhemoglobin 1.2 0.5-1.5 % Arterial Blood Methemoglobin 0.4 0.0-1.5 % Fly Test Yes Blood Gas Total Hemoglobin 13.80 13.5-17.5 g/dL Blood Gas Modality Room air FiO2 % 21.0 Hemoglobin A1c > 14.0 H <5.7 % A1C Serum Osmolality 366 H 278-298 mOsm/kg Phosphorus Level 9.1 H 2.4-5.1 mg/dL Beta-Hydroxybutyric Acid > 4.500 H < 0.4 mmol/L Test 01/07/25 14:52 Range/Units Urine Color Colorless Yellow Urine Clarity Clear Clear Urine pH 5.0 5.0-9.0 Urine Specific [place] 1.030 1.001-1.035 Urine Protein Negative Negative Urine Ketones 2+ H Negative Urine Blood Negative Negative /uL Urine Nitrite Negative Negative Urine Bilirubin Negative Negative Urine Urobilinogen Normal Negative mg/dL Urine Leukocyte Esterase Negative Negative /uL Urine RBC <1 0 - 3 /hpf Urine Microscopic WBC 0-3 /HPF Urine Squamous Epithelial Cells None seen <5 /hpf Urine Bacteria None seen None Seen /hpf Urine Glucose 4+ H Normal mg/dL Urine Opiates Screen Neg NEGATIVE Urine Fentanyl Screen Neg NEGATIVE Urine Barbiturates Screen Neg NEGATIVE Urine Phencyclidine Screen Neg NEGATIVE Urine Amphetamines Screen Neg NEGATIVE Urine Benzodiazepines Screen Neg NEGATIVE Urine Cocaine Screen Neg NEGATIVE Urine Cannabinoids Screen Neg NEGATIVE Assessment * Sinus bradycardia * DKA * JEFF and CKD * Hyperkalemia Plan/Recommendation * Continue telemetry monitoring. Positive chronotropic response with ambulation. Asymptomatic. * Echo with preserved LV and RV function, EF 60%. No significant valvular structural abnormalities. * Check TSH, free T4. * Nephrology on board. Kidney function improving. Case Discussed with Dr Vance. Continue telemetry monitoring. Positive chronotropic response with ambulation. Outpatient event monitoring. Normal EF on echo. No further cardiac workup indicated at this time pending normal TSH/FT 4. Critical care, time spent: 38 minutes This medical document was created using an electronic medical record system with voice recognition software and computerized dictation system. Although this document has been carefully reviewed, there might still be some phonetic and typographical errors. Occasional wrong-word or ``sound-alike substitutions may have occurred due to the inherent limitations of voice recognition software. These areas are purely typographical due to imperfections of the software programs and do not reflect any compromise in the patient's medical care. Please read the chart carefully and recognize, using context, where these substitutions have occurred. Thank you for allowing me to participate in the management of this patient. The treatment plan was discussed with and agreed upon by patient/family including requesting consultants and ordering of imaging/procedures. Plan discussed with: Patient, Other (Bedside nurse) NYHA Physical activity limitations: NA Date of Service: Jan 09, 2025 Billing Provider: CADE MONTOYA Cardiology Common Codes: [id number] INP/OBS CARE (High), [id number] CARE 30-74 MIN CADE MONTOYA Jan 09, 2025 11:26
[2025-01-09 11:41] LABS: Chloride 100 mmol/L (98-107)
[2025-01-09 11:42] LABS: Potassium 3.4 mmol/L (3.5-5.1); Sodium 135 mmol/L (136-145)
[2025-01-09 11:43] LABS: Calcium 8.8 mg/dL (8.7-10.4)
[2025-01-09 11:47] LABS: BUN/Creatinine Ratio 12.1 (10.0-20.0); Blood Urea Nitrogen 13 mg/dL (9-23)
[2025-01-09 11:50] LABS: Anion Gap 8 (5-15); Carbon Dioxide 27 mmol/L (20-31)
[2025-01-09 11:52] LABS: Glucose 274 mg/dL (74-106)
--- NOTE | 2025-01-09 15:15 | DVHPN2 ---
Subjective The patient is seen and examined at bedside. The patient asked what was wrong with him. The patient's blood glucose still fluctuating. Reviewed: Care Plan, H&P, Labs, Medications, Previous Orders, Radiology Changes from previous H/P or p: No Changes Objective Vitals Vital Signs Date Time Temp Pulse Resp B/P (MAP) Pulse Ox O2 Delivery O2 Flow Rate FiO2 01/09/25 12:46 98.0 75 15 93/59 (70) 99 98.0 01/09/25 08:00 Room Air* 0 21 Intake/Output Intake and Output 01/09/25 07:00 Intake Total 2725 ml Output Total 600 ml Balance 2125 ml Intake Oral 1500 ml IV Total 1225 ml Output Urine Total 600 ml # Voids 2 General Appearance: Alert, Oriented X3, Cooperative, No acute distress HEENT: Atraumatic, PERRLA, EOMI, Mucous membr. moist/pink Neck: Supple Lungs: Clear to auscultation, Normal air movement Cardiovascular: Regular rate, Normal S1, Normal S2, No murmurs, Gallops, Rubs Abdomen: Normal bowel sounds, Soft, No tenderness Neuro: Cranial nerves 3-12 NL Psych/Mental Status: Mental status NL Medications Current Medications Medications Dose Ordered Sig/Charisse Route Start Time Stop Time Status Last Admin Dose Admin Nitroglycerin 0.4 mg Q5MINP PRN SL 01/07/25 17:45 Morphine Sulfate 2 mg Q30M PRN IV 01/07/25 17:45 01/07/25 23:09 2 MG Diagnostic Test (Pha) 1 strip IQ4HR 01/08/25 04:00 01/09/25 12:00 1 STRIP Insulin Human Regular IQ4HR SC 01/08/25 04:00 01/09/25 12:40 4 UNITS Dextrose 50 ml UD PRN IV 01/08/25 01:45 Insulin Glargine 10 units DAILY@1000 SC 01/09/25 10:00 01/09/25 08:48 10 UNITS Sodium Chloride 1,000 ml @ 100 mls/hr Q10H IV 01/08/25 10:45 01/09/25 06:06 100 MLS/HR Laboratory Results Laboratory Tests 01/08/25 06:05 01/09/25 10:45 Chemistry Test 01/09/25 10:45 Calcium Level 8.8 mg/dL (8.7-10.4) HgA1c, TSH Test 01/09/25 10:45 Thyroid Stimulating Hormone (TSH) 2.50 uIU/mL (0.55-4.78) Urinalysis Test 01/07/25 14:52 Urine Color Colorless (Yellow) Urine Clarity Clear (Clear) Urine pH 5.0 (5.0-9.0) Urine Specific [place] 1.030 (1.001-1.035) Urine Protein Negative (Negative) Urine Ketones 2+ (Negative) H Urine Blood Negative /uL (Negative) Urine Nitrite Negative (Negative) Urine Bilirubin Negative (Negative) Urine Urobilinogen Normal mg/dL (Negative) Urine Leukocyte Esterase Negative /uL (Negative) Urine RBC <1 /hpf (0 - 3) Urine Microscopic WBC /HPF (0-3) Urine Squamous Epithelial Cells None seen /hpf (<5) Urine Bacteria None seen /hpf (None Seen) Urine Glucose 4+ mg/dL (Normal) H Labs and/or images reviewed: Labs reviewed by me Assessment/Plan Assessment/Plan -diabetic ketoacidosis , resolved -hyperkalemia -metabolic encephalopathy -cachexia -diabetes mellitus type 1 -acute kidney injury Plan: -continuing current management. The patient will be continuing with regular insulin sliding scale mild scale. -continuing with Lantus 10 units subQ twice per day. -continue aggressive IV hydration with another 1 L normal saline bolus followed by 150 mL/hr -replace electrolyte as needed -explained to the patient that he had DKA and now we tried to adjust his blood glucose until his getting better and he can go home. This medical document was created using an electronic medical record system with M*M flurency direct computerized dictation system. Although this document has been carefully reviewed, there may still be some phonetic and typographical errors. These areas are purely typographical due to imperfections of the software programs, and do not reflect any compromise in the patient's medical care. Plan discussed with: Patient Date of Service: Jan 09, 2025 Billing Provider: EZE BRANNON MD Common Visit Codes: [id number] INP/OBS CARE(HIGH) EZE BRANNON MD Jan 09, 2025 15:15
--- NOTE | 2025-01-09 17:21 | DVHPN2 ---
Progress Note Date Seen: Jan 09, 2025 Medical Necessity Reason Pt with a Central, PICC or Fol: No Subjective Patient reports: No new complaints Review of Systems: HEENT:Normal, CVS:Normal, RESPIRATORY:Normal, GI:Normal, :Normal, MSK:Normal, NEURO:Normal Objective vital signs Vital Sign Date Time Temp Pulse Resp B/P (MAP) Pulse Ox O2 Delivery O2 Flow Rate FiO2 01/09/25 16:46 97.9 80 17 99/61 (74) 100 97.9 01/09/25 08:00 Room Air* 0 21 Total Intake and Output 01/08/25 01/08/25 01/09/25 15:00 23:00 07:00 Intake Total 425 ml 2300 ml Output Total 600 ml Balance 425 ml 1700 ml medications Current Medications Medications Dose Ordered Sig/Charisse Route Start Time Stop Time Status Last Admin Dose Admin Nitroglycerin 0.4 mg Q5MINP PRN SL 01/07/25 17:45 Morphine Sulfate 2 mg Q30M PRN IV 01/07/25 17:45 01/07/25 23:09 2 MG Diagnostic Test (Pha) 1 strip IQ4HR 01/08/25 04:00 01/09/25 15:53 1 STRIP Insulin Human Regular IQ4HR SC 01/08/25 04:00 01/09/25 16:18 4 UNITS Dextrose 50 ml UD PRN IV 01/08/25 01:45 Insulin Glargine 10 units DAILY@1000 SC 01/09/25 10:00 01/09/25 08:48 10 UNITS Sodium Chloride 1,000 ml @ 100 mls/hr Q10H IV 01/08/25 10:45 01/09/25 15:53 100 MLS/HR laboratory and microbiology Laboratory Tests 01/09/25 10:45 01/08/25 06:05 Test 01/09/25 10:45 Range/Units Serum Glucose 274 #H 74-106 mg/dL Problem List/Assessment/Plan Problem List/Assessment/Plan Acute kidney injury hemodynamic mediated in the setting of DKA Hyperkalemia Diabetic ketoacidosis Encephalopathy Recommendations Blood sugar control Electrolytes and renal function improving since admission Low-potassium diet if pt tolerates po diet stop ivf Plan discussed with: Patient Dietary Evaluation Review Comments: 1.Continue diet regime 2. Consider referral to outpatient CDE 3. Rebalance electrolyes Expected Outcomes/Goals: 1. Pt's labs will trend toward WNL KAMILLE KEBEDE MD Jan 09, 2025 17:21
[2025-01-09] MEDS: POTASSIUM EFFERVESENT TAB 25 MEQ PO ONE (17:50)
--- NOTE | 2025-01-09 22:17 | DVHINCON2 ---
Date Seen: Jan 09, 2025 Referring Physician Cami Reason for Consultation Bradycardia History of Present Illness This is a 34-year-old male with a PMH of intellectual disability, CKD, diabetes, recently admitted to [facility] for DKA presented to the ED due to altered mental status and hyperglycemia. Patient is a poor historian therefore information gathered mainly from chart review. Apparently patient was discharged from [facility] on insulin regimen, upon evaluation in the ED patient had significant blood glucose elevated at 915. Patient admitted with DKA again, hyperkalemia, JEFF. While on telemetry patient noted to have episodes of bradycardia with heart rate down to the 40s. Cardiology consulted. Admission EKG reviewed and shows sinus bradycardia at 51 beats per minute, nonspecific T-wave abnormality. Past Medical History Diabetes, intellectual disability, CKD Past Surgical History No previous cardiac surgeries noted on review. Family History: Patient reports no known family medical history. Allergies: Coded Allergies: NO KNOWN ALLERGIES (Unverified , 03/20/12) Current Medications Current Medications Medications (Trade) Dose Ordered Sig/Charisse Route PRN Reason Start Time Stop Time Status Last Admin Insulin Glargine (Lantus) 10 units DAILY@1000 SC 01/09/25 10:00 01/09/25 08:48 Review of Systems Review of Systems Unable to assess. Vital Signs Vital Signs Date Time Temp Pulse Resp B/P (MAP) Pulse Ox O2 Delivery O2 Flow Rate FiO2 01/09/25 12:46 98.0 75 15 93/59 (70) 99 98.0 01/09/25 08:00 Room Air* 0 21 Physical Exam GENERAL: Awake, alert, oriented x 1-2. LUNGS: Clear. CARDIOVASCULAR: Bradycardic. ABDOMEN: Soft. Labs/Diagnostic Data Labs Test 01/09/25 15:40 01/09/25 10:45 01/08/25 06:05 01/07/25 15:12 Range/Units POC Glucose 209 H 70-106 mg/dl Sodium Level 135 #L 136-145 mmol/L Potassium Level 3.4 L 3.5-5.1 mmol/L Chloride Level 100 98-107 mmol/L Carbon Dioxide Level 27 20-31 mmol/L Anion Gap 8 5-15 Blood Urea Nitrogen 13 9-23 mg/dL Creatinine 1.07 0.700-1.30 mg/dL Glomerular Filtration Rate Calc 93 >90 mL/min BUN/Creatinine Ratio 12.1 10.0-20.0 Serum Glucose 274 #H 74-106 mg/dL Calcium Level 8.8 8.7-10.4 mg/dL Thyroid Stimulating Hormone (TSH) 2.50 0.55-4.78 uIU/mL White Blood Count 6.8 4.4-10.8 10^3/uL Red Blood Count 3.52 L 4.5-5.90 10^6/uL Hemoglobin 10.5 #L 13.5-17.5 g/dL Hematocrit 31.4 #L 41.0-53.0 % Mean Corpuscular Volume 89.2 # 80.0-100.0 fL Mean Corpuscular Hemoglobin 29.9 28.0-32.0 pg Mean Corpuscular Hemoglobin Concent 33.5 32.0-36.0 g/dL Red Cell Distribution Width 15.2 H 11.8-14.3 % Platelet Count 340 140-450 10^3/uL Mean Platelet Volume 8.5 6.9-10.8 fL Neutrophils (%) (Auto) 53.5 37.0-80.0 % Lymphocytes (%) (Auto) 32.5 10.0-50.0 % Monocytes (%) (Auto) 10.7 0.0-12.0 % Eosinophils (%) (Auto) 2.0 0.0-7.0 % Basophils (%) (Auto) 1.3 0.0-2.0 % Neutrophils # (Auto) 3.6 1.6-8.6 10 ^3/uL Lymphocytes # (Auto) 2.2 0.4-5.4 10 ^3/uL Monocytes # (Auto) 0.7 0-1.3 10 ^3/uL Eosinophils # (Auto) 0.1 0-0.8 10 ^3/uL Basophils # (Auto) 0.1 0-0.2 10 ^3/uL Nucleated Red Blood Cells 0.1 % Magnesium Level 1.8 1.6-2.6 mg/dL Troponin I High Sensitivity < 3 L </=54 ng/L Blood Gas Specimen Type Arterial Blood Gas Sample Site Right radial Blood Gas Patient Temperature 37.0 Arterial Blood Date Drawn [id number] Arterial Blood pH 7.289 L 7.350-7.450 Arterial Blood Partial Pressure CO2 39.7 35.0-48.0 mmHg Arterial Blood Partial Pressure O2 90.9 83.0-108.0 mmHg Arterial Blood HCO3 18.6 L 21.0-28.0 mmol/L Arterial Blood Oxygen Saturation 96.1 94.0-98.0 % Arterial Blood Base Excess -7.4 L -2.0-3.0 mmol/L Arterial Blood Oxyhemoglobin 94.6 94.0-98.0 % Arterial Blood Carboxyhemoglobin 1.2 0.5-1.5 % Arterial Blood Methemoglobin 0.4 0.0-1.5 % Fly Test Yes Blood Gas Total Hemoglobin 13.80 13.5-17.5 g/dL Blood Gas Modality Room air FiO2 % 21.0 Test 01/07/25 15:09 01/07/25 14:52 Range/Units Hemoglobin A1c > 14.0 H <5.7 % A1C Serum Osmolality 366 H 278-298 mOsm/kg Phosphorus Level 9.1 H 2.4-5.1 mg/dL Beta-Hydroxybutyric Acid > 4.500 H < 0.4 mmol/L Urine Color Colorless Yellow Urine Clarity Clear Clear Urine pH 5.0 5.0-9.0 Urine Specific [place] 1.030 1.001-1.035 Urine Protein Negative Negative Urine Ketones 2+ H Negative Urine Blood Negative Negative /uL Urine Nitrite Negative Negative Urine Bilirubin Negative Negative Urine Urobilinogen Normal Negative mg/dL Urine Leukocyte Esterase Negative Negative /uL Urine RBC <1 0 - 3 /hpf Urine Microscopic WBC 0-3 /HPF Urine Squamous Epithelial Cells None seen <5 /hpf Urine Bacteria None seen None Seen /hpf Urine Glucose 4+ H Normal mg/dL Urine Opiates Screen Neg NEGATIVE Urine Fentanyl Screen Neg NEGATIVE Urine Barbiturates Screen Neg NEGATIVE Urine Phencyclidine Screen Neg NEGATIVE Urine Amphetamines Screen Neg NEGATIVE Urine Benzodiazepines Screen Neg NEGATIVE Urine Cocaine Screen Neg NEGATIVE Urine Cannabinoids Screen Neg NEGATIVE Assessment Sinus bradycardia. DKA . JEFF and CKD. Hyperkalemia. Plan/Recommendation I agree with your ongoing assessment and care of plan. Patient has been seen by Solomon Stevenson NP on my behalf, him and I discussed the plan with the patient. Continue telemetry monitoring. Echo with preserved LV and RV function, EF 60%. No significant valvular structural abnormalities. Check TSH, free T4. Nephrology on board. Kidney function improving. Additional plan as per the hospital course. Plan discussed with: Patient NYHA Physical activity limitations: NA Date of Service: Jan 09, 2025 Billing Provider: GILBERT ALEX MD Cardiology Common Codes: [id number] INP/OBS CARE (High), [id number] CARE 30-74 MIN GILBERT ALEX MD Jan 09, 2025 16:19
[2025-01-10] VITALS (7 sets, daily range): BP systolic 95–110; BP diastolic 51–69; PULSE 53–84; RESP 15–18; TEMP 97.6–98.7; O2SAT 99–100
[2025-01-10] MEDS: INSULIN LANTUS (GLARGINE) 1 /0.01ml (100units/ml) SC SCH (15:00)
--- NOTE | 2025-01-10 20:49 | DVHPN2 ---
Progress Note Date Seen: Jan 10, 2025 Medical Necessity Reason Pt with a Central, PICC or Fol: No Subjective Patient reports: No new complaints Objective vital signs Vital Sign Date Time Temp Pulse Resp B/P (MAP) Pulse Ox O2 Delivery O2 Flow Rate FiO2 01/10/25 16:22 98.2 70 16 97/63 (74) 100 98.2 01/10/25 08:05 Room Air* 0 21 Total Intake and Output 01/09/25 01/09/25 01/10/25 15:00 23:00 07:00 Intake Total 1200 ml 1000 ml Output Total 600 ml Balance 600 ml 1000 ml medications Current Medications Medications Dose Ordered Sig/Charisse Route Start Time Stop Time Status Last Admin Dose Admin Nitroglycerin 0.4 mg Q5MINP PRN SL 01/07/25 17:45 Morphine Sulfate 2 mg Q30M PRN IV 01/07/25 17:45 01/07/25 23:09 2 MG Diagnostic Test (Pha) 1 strip IQ4HR 01/08/25 04:00 01/10/25 15:54 1 STRIP Insulin Human Regular IQ4HR SC 01/08/25 04:00 01/10/25 15:58 6 UNITS Dextrose 50 ml UD PRN IV 01/08/25 01:45 Sodium Chloride 1,000 ml @ 100 mls/hr Q10H IV 01/08/25 10:45 01/10/25 03:11 100 MLS/HR Insulin Glargine 20 units DAILY@1000 SC 01/10/25 15:00 laboratory and microbiology Laboratory Tests 01/09/25 10:45 01/08/25 06:05 Test 01/09/25 10:45 Range/Units Serum Glucose 274 #H 74-106 mg/dL Problem List/Assessment/Plan Problem List/Assessment/Plan Acute kidney injury hemodynamic mediated in the setting of DKA Hyperkalemia Diabetic ketoacidosis Encephalopathy Recommendations dc ivf Improved renal function I will sign off this case please reconsult if needed Plan discussed with: Patient Dietary Evaluation Review Comments: 1.Continue diet regime 2. Consider referral to outpatient CDE 3. Rebalance electrolyes Expected Outcomes/Goals: 1. Pt's labs will trend toward WNL KAMILLE KEBEDE MD Jan 10, 2025 20:49
--- NOTE | 2025-01-10 21:27 | DVHPN2 ---
Subjective The patient is seen and examined at bedside. The patient asked what was wrong with him. The patient's blood glucose still fluctuating. Reviewed: Care Plan, H&P, Labs, Medications, Previous Orders, Radiology Changes from previous H/P or p: No Changes Objective Vitals Vital Signs Date Time Temp Pulse Resp B/P (MAP) Pulse Ox O2 Delivery O2 Flow Rate FiO2 01/10/25 16:22 98.2 70 16 97/63 (74) 100 98.2 01/10/25 08:05 Room Air* 0 21 Intake/Output Intake and Output 01/10/25 07:00 Intake Total 2200 ml Output Total 600 ml Balance 1600 ml Intake Oral 200 ml IV Total 2000 ml Output Urine Total 600 ml # Voids 1 General Appearance: Alert, Oriented X3, Cooperative, No acute distress HEENT: Atraumatic, PERRLA, EOMI, Mucous membr. moist/pink Neck: Supple Lungs: Clear to auscultation, Normal air movement Cardiovascular: Regular rate, Normal S1, Normal S2, No murmurs, Gallops, Rubs Abdomen: Normal bowel sounds, Soft, No tenderness Neuro: Cranial nerves 3-12 NL Psych/Mental Status: Mental status NL Medications Current Medications Medications Dose Ordered Sig/Charisse Route Start Time Stop Time Status Last Admin Dose Admin Nitroglycerin 0.4 mg Q5MINP PRN SL 01/07/25 17:45 Morphine Sulfate 2 mg Q30M PRN IV 01/07/25 17:45 01/07/25 23:09 2 MG Diagnostic Test (Pha) 1 strip IQ4HR 01/08/25 04:00 01/10/25 20:42 1 STRIP Insulin Human Regular IQ4HR SC 01/08/25 04:00 01/10/25 20:45 6 UNITS Dextrose 50 ml UD PRN IV 01/08/25 01:45 Insulin Glargine 20 units DAILY@1000 SC 01/10/25 15:00 Laboratory Results Laboratory Tests 01/08/25 06:05 01/09/25 10:45 Urinalysis Test 01/07/25 14:52 Urine Color Colorless (Yellow) Urine Clarity Clear (Clear) Urine pH 5.0 (5.0-9.0) Urine Specific [place] 1.030 (1.001-1.035) Urine Protein Negative (Negative) Urine Ketones 2+ (Negative) H Urine Blood Negative /uL (Negative) Urine Nitrite Negative (Negative) Urine Bilirubin Negative (Negative) Urine Urobilinogen Normal mg/dL (Negative) Urine Leukocyte Esterase Negative /uL (Negative) Urine RBC <1 /hpf (0 - 3) Urine Microscopic WBC /HPF (0-3) Urine Squamous Epithelial Cells None seen /hpf (<5) Urine Bacteria None seen /hpf (None Seen) Urine Glucose 4+ mg/dL (Normal) H Assessment/Plan Assessment/Plan -diabetic ketoacidosis , resolved -hyperkalemia -metabolic encephalopathy -cachexia -diabetes mellitus type 1 -acute kidney injury Plan: -continuing current management. The patient will be continuing with regular insulin sliding scale mild scale. -increase Lantus to 20 units subQ twice per day. -continue aggressive IV hydration with another 1 L normal saline bolus followed by 150 mL/hr -replace electrolyte as needed -explained to the patient that he had DKA and now we tried to adjust his blood glucose until his getting better and he can go home. This medical document was created using an electronic medical record system with [employer] computerized dictation system. Although this document has been carefully reviewed, there may still be some phonetic and typographical errors. These areas are purely typographical due to imperfections of the software programs, and do not reflect any compromise in the patient's medical care. Plan discussed with: Patient My Orders Orders - EZE BRANNON MD Procedure Category Date Status Time Insulin Lantus PHA 01/10/25 In Process (Glargine) (Lantus) 15:00 Date of Service: Jan 10, 2025 Billing Provider: EZE BRANNON MD Common Visit Codes: [id number] INP/OBS CARE(HIGH) EZE BRANNON MD Jan 10, 2025 21:27
--- NOTE | 2025-01-10 23:10 | DVHPN2 ---
Progress Note - Dictate Date Seen: Jan 10, 2025 Medical Necessity Reason Pt with a Central, PICC or Fol: No Subjective Patient was seen and evaluated in follow up. No overnight events. Patient denies any current complaints. Echocardiogram showed an EF of 60% with normal RV function. No pericardial effusion masses or vegetations. BS in the 250s. Telemetry reviewed. vital signs Vital Sign Date Time Temp Pulse Resp B/P (MAP) Pulse Ox O2 Delivery O2 Flow Rate FiO2 01/10/25 16:22 98.2 70 16 97/63 (74) 100 98.2 01/10/25 08:05 Room Air* 0 21 Total Intake and Output 01/09/25 01/09/25 01/10/25 15:00 23:00 07:00 Intake Total 1200 ml 1000 ml Output Total 600 ml Balance 600 ml 1000 ml medications Current Medications Medications Dose Ordered Sig/Charisse Route Start Time Stop Time Status Last Admin Dose Admin Nitroglycerin 0.4 mg Q5MINP PRN SL 01/07/25 17:45 Morphine Sulfate 2 mg Q30M PRN IV 01/07/25 17:45 01/07/25 23:09 2 MG Diagnostic Test (Pha) 1 strip IQ4HR 01/08/25 04:00 01/10/25 15:54 1 STRIP Insulin Human Regular IQ4HR SC 01/08/25 04:00 01/10/25 15:58 6 UNITS Dextrose 50 ml UD PRN IV 01/08/25 01:45 Sodium Chloride 1,000 ml @ 100 mls/hr Q10H IV 01/08/25 10:45 01/10/25 03:11 100 MLS/HR Insulin Glargine 20 units DAILY@1000 SC 01/10/25 15:00 objective GENERAL: Awake, alert, oriented x 1-2. LUNGS: Clear. CARDIOVASCULAR: Bradycardic. ABDOMEN: Soft. laboratory and microbiology Laboratory Tests 01/09/25 10:45 01/08/25 06:05 Test 01/09/25 10:45 Range/Units Serum Glucose 274 #H 74-106 mg/dL Problem List Sinus bradycardia. DKA . JEFF and CKD. Hyperkalemia. Assessment/Plan Continued all current supportive medical care. IVFs. Nitro SL. Morphine for pain management. Additional plan as per the hospital course. Dietary Evaluation Review Comments: 1.Continue diet regime 2. Consider referral to outpatient CDE 3. Rebalance electrolyes Expected Outcomes/Goals: 1. Pt's labs will trend toward WNL Plan discussed with: Patient GILBERT ALEX MD Jan 10, 2025 20:15
[2025-01-11 01:00] VITALS: BP 102/73; PULSE 75; RESP 18; TEMP 97.7; O2SAT 90
[2025-01-11 05:00] VITALS: BP 90/57; PULSE 98; RESP 18; TEMP 98; O2SAT 100
[2025-01-11 08:00] VITALS: PULSE 71
[2025-01-11 08:45] VITALS: BP 93/56; PULSE 59; RESP 16; TEMP 98.1; O2SAT 98
[2025-01-11 08:54] LABS: Hepatitis B Surface Antigen Negative (Negative)
[2025-01-11 09:15] LABS: Hepatitis C Antibody Negative (Negative)
[2025-01-11 09:27] LABS: Basophils # (auto) 0.1 10 ^3/uL (0-0.2); Basophils % (auto) 1.8 % (0.0-2.0); Eosinophils # (auto) 0.1 10 ^3/uL (0-0.8); Eosinophils % (auto) 3.1 % (0.0-7.0); Hematocrit 31.1 % (41.0-53.0); Hemoglobin 10.5 g/dL (13.5-17.5); Lymphocytes # (auto) 1.4 10 ^3/uL (0.4-5.4); Lymphocytes % (auto) 40.6 % (10.0-50.0); Mean Corpuscular Hemoglobin 30.1 pg (28.0-32.0); Mean Corpuscular Hgb Conc. 33.7 g/dL (32.0-36.0); Mean Corpuscular Volume 89.3 fL (80.0-100.0); Monocytes # (auto) 0.4 10 ^3/uL (0-1.3); Monocytes % (auto) 10.8 % (0.0-12.0); Neutrophils # (auto) 1.6 10 ^3/uL (1.6-8.6); Neutrophils % (auto) 43.7 % (37.0-80.0); Nucleated Red Blood Cells % 0.2 %; Platelet Count (auto) 261 10^3/uL (140-450); Red Blood Cells 3.48 10^6/uL (4.5-5.90); Red Cell Distribution Width 15.3 % (11.8-14.3); White Blood Cell 3.6 10^3/uL (4.4-10.8)
[2025-01-11 09:36] LABS: Chloride 103 mmol/L (98-107); Potassium 4.1 mmol/L (3.5-5.1); Sodium 137 mmol/L (136-145)
[2025-01-11 09:37] LABS: Anion Gap 6 (5-15); Calcium 9.2 mg/dL (8.7-10.4); Carbon Dioxide 28 mmol/L (20-31)
[2025-01-11 09:42] LABS: BUN/Creatinine Ratio 11.1 (10.0-20.0); Blood Urea Nitrogen 11 mg/dL (9-23)
[2025-01-11 09:49] LABS: Glucose 216 mg/dL (74-106)
[2025-01-11 13:00] VITALS: BP 91/50; PULSE 62; RESP 16; TEMP 98.4; O2SAT 98
--- NOTE | 2025-01-11 14:21 | DVHDS2 ---
Discharge Summary Date of Admission Jan 07, 2025 at 17:31 Date of Discharge: Jan 11, 2025 Admitting Diagnosis Diabetic ketoacidosis Labs/Diagnostic Data: Laboratory Results Test 01/11/25 12:27 01/11/25 08:51 01/09/25 10:45 01/08/25 06:05 POC Glucose 236 mg/dl (70-106) White Blood Count 3.6 10^3/uL (4.4-10.8) Red Blood Count 3.48 10^6/uL (4.5-5.90) Hemoglobin 10.5 g/dL (13.5-17.5) Hematocrit 31.1 % (41.0-53.0) Mean Corpuscular Volume 89.3 fL (80.0-100.0) Mean Corpuscular Hemoglobin 30.1 pg (28.0-32.0) Mean Corpuscular Hemoglobin Concent 33.7 g/dL (32.0-36.0) Red Cell Distribution Width 15.3 % (11.8-14.3) Platelet Count 261 10^3/uL (140-450) Mean Platelet Volume 8.6 fL (6.9-10.8) Neutrophils (%) (Auto) 43.7 % (37.0-80.0) Lymphocytes (%) (Auto) 40.6 % (10.0-50.0) Monocytes (%) (Auto) 10.8 % (0.0-12.0) Eosinophils (%) (Auto) 3.1 % (0.0-7.0) Basophils (%) (Auto) 1.8 % (0.0-2.0) Neutrophils # (Auto) 1.6 10 ^3/uL (1.6-8.6) Lymphocytes # (Auto) 1.4 10 ^3/uL (0.4-5.4) Monocytes # (Auto) 0.4 10 ^3/uL (0-1.3) Eosinophils # (Auto) 0.1 10 ^3/uL (0-0.8) Basophils # (Auto) 0.1 10 ^3/uL (0-0.2) Nucleated Red Blood Cells 0.2 % Sodium Level 137 mmol/L (136-145) Potassium Level 4.1 mmol/L (3.5-5.1) Chloride Level 103 mmol/L (98-107) Carbon Dioxide Level 28 mmol/L (20-31) Anion Gap 6 (5-15) Blood Urea Nitrogen 11 mg/dL (9-23) Creatinine 0.99 mg/dL (0.700-1.30) Glomerular Filtration Rate Calc 102 mL/min (>90) BUN/Creatinine Ratio 11.1 (10.0-20.0) Serum Glucose 216 mg/dL (74-106) Calcium Level 9.2 mg/dL (8.7-10.4) Thyroid Stimulating Hormone (TSH) 2.50 uIU/mL (0.55-4.78) Magnesium Level 1.8 mg/dL (1.6-2.6) Troponin I High Sensitivity < 3 ng/L (</=54) Hepatitis B Surface Antigen Negative (Negative) Hepatitis C Antibody Negative (Negative) Test 01/07/25 15:12 01/07/25 15:09 01/07/25 14:52 Blood Gas Specimen Type Arterial Blood Gas Sample Site Right radial Blood Gas Patient Temperature 37.0 Arterial Blood Date Drawn [id number] Arterial Blood pH 7.289 (7.350-7.450) Arterial Blood Partial Pressure CO2 39.7 mmHg (35.0-48.0) Arterial Blood Partial Pressure O2 90.9 mmHg (83.0-108.0) Arterial Blood HCO3 18.6 mmol/L (21.0-28.0) Arterial Blood Oxygen Saturation 96.1 % (94.0-98.0) Arterial Blood Base Excess -7.4 mmol/L (-2.0-3.0) Arterial Blood Oxyhemoglobin 94.6 % (94.0-98.0) Arterial Blood Carboxyhemoglobin 1.2 % (0.5-1.5) Arterial Blood Methemoglobin 0.4 % (0.0-1.5) Fly Test Yes Blood Gas Total Hemoglobin 13.80 g/dL (13.5-17.5) Blood Gas Modality Room air FiO2 % 21.0 Hemoglobin A1c > 14.0 % A1C (<5.7) Serum Osmolality 366 mOsm/kg (278-298) Phosphorus Level 9.1 mg/dL (2.4-5.1) Beta-Hydroxybutyric Acid > 4.500 mmol/L (< 0.4) Urine Color Colorless (Yellow) Urine Clarity Clear (Clear) Urine pH 5.0 (5.0-9.0) Urine Specific [place] 1.030 (1.001-1.035) Urine Protein Negative (Negative) Urine Ketones 2+ (Negative) Urine Blood Negative /uL (Negative) Urine Nitrite Negative (Negative) Urine Bilirubin Negative (Negative) Urine Urobilinogen Normal mg/dL (Negative) Urine Leukocyte Esterase Negative /uL (Negative) Urine RBC <1 /hpf (0 - 3) Urine Microscopic WBC /HPF (0-3) Urine Squamous Epithelial Cells None seen /hpf (<5) Urine Bacteria None seen /hpf (None Seen) Urine Glucose 4+ mg/dL (Normal) Urine Opiates Screen Neg (NEGATIVE) Urine Fentanyl Screen Neg (NEGATIVE) Urine Barbiturates Screen Neg (NEGATIVE) Urine Phencyclidine Screen Neg (NEGATIVE) Urine Amphetamines Screen Neg (NEGATIVE) Urine Benzodiazepines Screen Neg (NEGATIVE) Urine Cocaine Screen Neg (NEGATIVE) Urine Cannabinoids Screen Neg (NEGATIVE) Other Laboratory Tests 01/11/25 08:51 Brief Hx & Hospital Course: History of Present Illness Patient was a 34-year-old male presenting to the emergency room with altered mental status and hyperglycemia. Apparently, the patient was recently discharged from [facility] with an insulin regimen. At the time of assessment, patient continues to have altered mental status and only responds by knowing his name. Patient was blood sugar was found to be significantly elevated at 915. At this time there is no other history available for this patient. Course of hospitalization: DKA was resolved after given adequate IV hydration as well as insulin drip per protocol. Patient has been transitioned to Lantus as well as regular insulin sliding scale. Patient is now alert, although noted to have delayed response. Questionable underlying neurological disorder. Unable to obtain any medical history from family at this time. Apparently, patient was at a [facility] facility. Patient will be discharged back to the facility or with his mother when she was contacted. Patient will be continued on regular insulin sliding scale as well as Lantus. Patient verbalized understanding. Physical examination General: Alert and Oriented x3. No acute distress. Well-nourished. Eyes: EOMI. Anicteric. HENT: Moist mucous membranes. Lungs: Clear to auscultation bilaterally. No accessory muscle use. Cardiovascular: Regular rate and rhythm. No murmur. No JVD. Abdomen: Soft, non-tender and non-distended. No palpable masses. Extremities: No edema. Non-tender. Skin: No rashes or lesions. Warm. Neurologic: No focal neurological deficits. CN II-XII grossly intact, but not individually tested. Psychiatric: Cooperative. Appropriate mood and affect. Total time spent with patient discussing and formulating plan of care: 35 minutes. This medical document was created using an electronic medical record system with [employer] dictation system. Although this document has been carefully reviewed, there may still be some phonetic and typographical errors. These areas are purely typographical due to imperfections of the software programs, and do not reflect any compromise in the patient's medical care. Condition at Discharge: Fair Final Diagnosis/Problems List DKA Secondary diagnosis Metabolic encephalopathy , secondary to DKA Cachexia Cognitive impairment Discharge Disposition: Home Discharge Instruct/Medications Diet: Consistent carbohydrate Activity: No Restrictions, As Tolerated Follow Up/Referral: PCP in 1-2 weeks Medications: Refer to Medication Reconciliation form 36 Discharge Statement: "Patient was advised to return to the ER or call 911 if any headaches, dizziness, shortness of breath, chest pain, abdominal pain, bleeding, fevers, or worsening of medical condition. Patient was counseled about treatment plan, medications, possible side effects, patientverbalized understanding. All questions were answered to the best of my ability. This discharge took greater then 30 minutes in planning, reviewing documentation, counseling the patient, and discussing with other team members." ASSESSMENT ASSESSMENT Assessment DKA Date of Service: Jan 11, 2025 Billing Provider: VANESSA SUAREZ NP Common Visit Codes: [id number] DISCH DAY >30min VANESSA SUAREZ NP Jan 11, 2025 14:21
[2025-01-11 15:04] VITALS: BP 91/50; PULSE 62; RESP 16; TEMP 36.9; O2SAT 98
--- NOTE | 2025-01-11 21:58 | DVHPN2 ---
Progress Note - Dictate Date Seen: Jan 11, 2025 Medical Necessity Reason Pt with a Central, PICC or Fol: No Subjective Patient was seen and evaluated in follow up. Patient has no new complaints at this time. Patient denies any cardiac symptoms. Patient is cardiac stable for discharge. Telemetry reviewed. vital signs Vital Sign Date Time Temp Pulse Resp B/P (MAP) Pulse Ox O2 Delivery O2 Flow Rate FiO2 01/11/25 15:04 36.9 62 16 98 01/11/25 13:00 91/50 (64) 01/11/25 08:00 Room Air* 0 21 Total Intake and Output 01/10/25 01/10/25 01/11/25 15:00 23:00 07:00 Intake Total 300 ml 300 ml Balance 300 ml 300 ml objective GENERAL: Awake, alert, oriented x 1-2. LUNGS: Clear. CARDIOVASCULAR: Bradycardic. ABDOMEN: Soft. laboratory and microbiology Laboratory Tests 01/11/25 08:51 Test 01/11/25 08:51 Range/Units Serum Glucose 216 H 74-106 mg/dL Problem List Sinus bradycardia. DKA . JEFF and CKD. Hyperkalemia. Assessment/Plan Continued all current supportive medical care. IVFs. Nitro SL. Morphine for pain management. Additional plan as per the hospital course. Dietary Evaluation Review Comments: 1.Continue diet regime 2. Consider referral to outpatient CDE 3. Rebalance electrolyes Expected Outcomes/Goals: 1. Pt's labs will trend toward WNL Plan discussed with: Patient GILBERT ALEX MD Jan 11, 2025 21:58
== END 2025-01-11 16:40 | disposition home or self-care (01) | DRG 637 ==
LOC: EDUNIT# 14:29 → EDBD 14:29 → ER 14:29 → OVERFLOW 17:31 → TELE-WESTW 01-08 23:48
PROVIDERS: ADMIT Nurse Practitioner Acute Care; ATTEND Nurse Practitioner Acute Care
DX: E10.10 Type 1 diabetes mellitus with ketoacidosis without coma (principal); G93.41 Metabolic encephalopathy; R64 Cachexia; N17.9 Acute kidney failure, unspecified; Z68.1 Body mass index [BMI] 19.9 or less, adult; E87.5 Hyperkalemia; F17.210 Nicotine dependence, cigarettes, uncomplicated; E10.22 Type 1 diabetes mellitus with diabetic chronic kidney disease; N18.9 Chronic kidney disease, unspecified; Z79.899 Other long term (current) drug therapy
CPT/HCPCS: 36415; 36600; 80048; 80307; 81001; 82010; 82805; 82962; 83036; 83735; 83930; 84100; 84439; 84443; 84484; 85025; 86803; 87340; 93005; 93306; 96365; 96367; 99291; G0378; J1815; J3480